=== PATIENT | male | born 1945 | race Caucasian/White ===

== ENCOUNTER 2018-02-11 08:32 | Outpatient (CLI) | payer MEDICARE, BC ==
[~2018-02-11] VITALS: Ht 177.8 cm; Wt 111.6 kg
[2018-02-11] VITALS (8 sets, daily range): BP systolic 112–148; BP diastolic 64–101; PULSE 68–101; TEMP 97.2–98.2
[~2018-02-11 08:32] MED LIST: BENADRYL25 M2 PO; BENADRYL50 MG PO; CYCLOBENZAPRINE10 MG PO; DAZIDOX10 MG PO; FLEXERIL 1010 MG/TAB PO; FOLIC ACID0.8 MG PO; HCTZ 25MG TAB25 MG PO; HCTZ12.5TAB PO; LIPITOR 40MG TA40 MG PO; LIPITOR40 MG PO; LISINOPRIL/HCTZ1 TA1 PO; METHOTREXA2.5 MG/TAB PO; METHOTREXATE S2.5 M1 PO; MILLIPRED5 MG PO; PERCOCET 325 MG1 TA5 PO; PREDNISONE 5MG5 MG PO; PREDNISONE10 M1 PO; PRINIVIL40 MG PO; TREXALL10 MG PO; ZANAFLEX 4MG TAB4 MG PO; ZANAFLEX CAPSULE4 MG PO; ZESTORETIC 12.51 TA1 PO
[2018-02-11 09:17] LABS: HEMATOCRIT 46.8 % (42.0-52.0); HEMOGLOBIN 15.6 g/dl (13.5-18.0); MEAN CELL VOLUME 87 fl (80.0-100.0); MEAN CORPUSCULAR HEMOGLOBIN 29 pg (27.0-31.0); MEAN CORPUSCULAR HGB CONC 33 g/dl (33.0-37.0); MEAN PLATELET VOLUME 9.7 fl (7.4-10.4); PLATELET COUNT 260 K/mm3 (130-400); RED BLOOD COUNT 5.38 M/mm3 (4.20-5.60); REDCELL DISTRIBUTION WIDTH-CV 13.2 % (11.5-14.5)
[2018-02-11 09:31] LABS: ALBUMIN 4.3 gm/dL (3.5-5.0); BAND 4 % (0-10); BILIRUBIN,TOTAL 0.6 mg/dL (0.0-1.0); C-REACTIVE PROTEIN 1.8 mg/dL (0.0-0.9); CALCIUM 9.5 mg/dL (8.4-10.2); CREATININE, serum 0.72 mg/dL (0.66-1.25); LYMPHOCYTE 54 % (20.0-51.0); NEUTROPHILS 37 % (42.0-75.2); PLATELET ESTIMATE NORMAL (NORMAL); POTASSIUM 3.6 mmol/L (3.4-5.0); TOTAL PROTEIN 7.4 gm/dL (6.4-8.2)
[2018-02-11 09:38] LABS: ERYTHROCYTE SEDIMENTATION RATE 6 mm/hr (0-30)
== END 2018-02-11 13:40 | disposition home or self-care (01) ==
LOC: EUO 08:32 → MEDICAL 08:33 → EUO 13:40
PROVIDERS: Family Medicine
DX: M05.79 Rheumatoid arthritis with rheumatoid factor of multiple sites without organ or systems involvement (principal); Z79.899 Other long term (current) drug therapy
CPT/HCPCS: OP; J2930; J7050; J9310

== ENCOUNTER 2018-02-25 08:25 | Outpatient (CLI) | payer MEDICARE, BC ==
[2018-02-25] VITALS (8 sets, daily range): BP systolic 110–135; BP diastolic 65–84; PULSE 67–84; TEMP 97.5–98.2
[~2018-02-25] VITALS: Ht 177.8 cm; Wt 111.3 kg
[2018-02-25 08:56] LABS: HEMOGLOBIN 15.6 g/dl (13.5-18.0); MEAN CELL VOLUME 89 fl (80.0-100.0); MEAN CORPUSCULAR HEMOGLOBIN 29 pg (27.0-31.0); MEAN CORPUSCULAR HGB CONC 33 g/dl (33.0-37.0); MEAN PLATELET VOLUME 9.7 fl (7.4-10.4); PLATELET COUNT 234 K/mm3 (130-400); RED BLOOD COUNT 5.39 M/mm3 (4.20-5.60); REDCELL DISTRIBUTION WIDTH-CV 13.1 % (11.5-14.5)
[2018-02-25 09:12] LABS: ALBUMIN 4.3 gm/dL (3.5-5.0); BILIRUBIN,TOTAL 0.5 mg/dL (0.0-1.0); CALCIUM 9.2 mg/dL (8.4-10.2); CREATININE, serum 0.71 mg/dL (0.66-1.25); TOTAL PROTEIN 7.5 gm/dL (6.4-8.2)
[2018-02-25 09:47] LABS: ERYTHROCYTE SEDIMENTATION RATE 1 mm/hr (0-30)
== END 2018-02-25 13:24 | disposition home or self-care (01) ==
LOC: MEDICAL 08:25 → COL.AMSURD 08:25
PROVIDERS: Family Medicine
DX: M05.79 Rheumatoid arthritis with rheumatoid factor of multiple sites without organ or systems involvement (principal); Z79.899 Other long term (current) drug therapy
CPT/HCPCS: OP; J2930; J7050; J9310

== ENCOUNTER 2019-09-18 10:00 | Outpatient (RCR) | payer MEDICARE, BC ==
--- NOTE | 2019-09-03 15:42 | NUR ---
LEFT A VOICEMAIL FOR PATIENT ASKING HIM TO CALL US IF HE IS SICK, OR HAS DEVELOPED ANY VIRAL SYMPTOMS INCLUDING COUGH, FEVER, SOB...INFORMED HIM HE IS WELCOME TO COME TO APPT IF HE HAS BEEN WELL WITH NO VIRAL SX AND KNOWN EXPOSURE TO ALONSO VIRUS.
[2019-09-04] VITALS (11 sets, daily range): BP systolic 122–160; BP diastolic 70–91; PULSE 62–82; TEMP 97.6–98.2
[2019-09-04 10:39] LABS: HEMATOCRIT 46.6 % (42.0-52.0); HEMOGLOBIN 15.3 g/dl (13.5-18.0); MEAN CELL VOLUME 90 fl (80.0-100.0); MEAN CORPUSCULAR HEMOGLOBIN 30 pg (27.0-31.0); MEAN CORPUSCULAR HGB CONC 33 g/dl (33.0-37.0); MEAN PLATELET VOLUME 9.7 fl (7.4-10.4); PLATELET COUNT 189 K/mm3 (130-400); RED BLOOD COUNT 5.17 M/mm3 (4.20-5.60); REDCELL DISTRIBUTION WIDTH-CV 13.2 % (11.5-14.5)
[2019-09-04 10:57] LABS: ALANINE AMINOTRANSFERASE 26 U/L (4-49); ALBUMIN 4.3 gm/dL (3.5-5.0); ALKALINE PHOSPHATASE 79 U/L (50-136); ANION GAP 7 mmol/L (7-16); AST,SGOT 26 U/L (15-37); BILIRUBIN,TOTAL 0.4 mg/dL (0.0-1.0); BLOOD UREA NITROGEN 16 mg/dL (9-20); CALCIUM 9.2 mg/dL (8.4-10.2); CARBON DIOXIDE 26 mmol/L (22-30); CHLORIDE 103 mmol/L (98-107); CREATININE, serum 0.67 (0.66-1.25); GLUCOSE 131 mg/dL (74-106); POTASSIUM 4.1 mmol/L (3.4-5.0); SODIUM 136 mmol/L (137-145); TOTAL PROTEIN 7.2 gm/dL (6.4-8.2)
[2019-09-04 10:59] LABS: ERYTHROCYTE SEDIMENTATION RATE 1 mm/hr (0-30)
[2019-09-04 11:00] LABS: C-REACTIVE PROTEIN < 0.5 mg/dL (0.0-0.9)
--- NOTE | 2019-09-17 19:53 | NUR ---
CALLED PT TO REVIEW INFECTIOUS DISEASE SCREENING. NO ANSWER.
[~2019-09-18] VITALS: Ht 177.8 cm; Wt 113.5 kg
[2019-09-18] VITALS (9 sets, daily range): BP systolic 101–163; BP diastolic 50–96; PULSE 54–73; TEMP 98–98.1
[~2019-09-18 10:00] MED LIST changes: +CELEBREX 200MG200 MG PO
[2019-09-18 10:10] LABS: HEMATOCRIT 46.3 % (42.0-52.0); HEMOGLOBIN 15.1 g/dl (13.5-18.0); MEAN CELL VOLUME 89 fl (80.0-100.0); MEAN CORPUSCULAR HEMOGLOBIN 29 pg (27.0-31.0); MEAN CORPUSCULAR HGB CONC 33 g/dl (33.0-37.0); MEAN PLATELET VOLUME 9.7 fl (7.4-10.4); PLATELET COUNT 230 K/mm3 (130-400); REDCELL DISTRIBUTION WIDTH-CV 13.2 % (11.5-14.5)
[2019-09-18 10:22] LABS: ALBUMIN 4.2 gm/dL (3.5-5.0); BILIRUBIN,TOTAL 0.6 mg/dL (0.0-1.0); CALCIUM 9.3 mg/dL (8.4-10.2); CREATININE, serum 0.73 (0.66-1.25); POTASSIUM 4.2 mmol/L (3.4-5.0); TOTAL PROTEIN 6.8 gm/dL (6.4-8.2)
[2019-09-18 10:24] LABS: C-REACTIVE PROTEIN 0.5 mg/dL (0.0-0.9)
[2019-09-18 10:42] LABS: ERYTHROCYTE SEDIMENTATION RATE 1 mm/hr (0-30)
== END 2019-09-18 16:00 | disposition home or self-care (01) ==
LOC: EUO 10:00
PROVIDERS: Family Medicine
DX: Z79.899 Other long term (current) drug therapy (principal)
CPT/HCPCS: J7040; J9312

== ENCOUNTER 2019-10-01 16:25 | Inpatient (IN) | payer MEDICARE, BC ==
[~2019-10-01] VITALS: Ht 177.8 cm; Wt 111.2 kg
[2019-10-07] VITALS (11 sets, daily range): BP systolic 115–166; BP diastolic 61–94; PULSE 68–90; TEMP 97.3–98.8
[2019-10-07] MEDS ORDERED: RITUXAN 50500 MG/50 IV (11:49)
--- NOTE | 2019-10-07 19:46 | NUR ---
Patient revieved post op. Report from Suki in PACU. Patient alert & oriented. Having significant back pain. Patient assist up to the chair. Patient medicated with Oxycodone, patient take this regularly for back pain at home for "bone spurs" Kpad provided for his pain. Abdomen dressing CDI. Hyde to DD. IVF per orders. Scds ble.
--- NOTE | 2019-10-07 21:15 | NUR ---
PT UP IN CHAIR AT BEDSIDE, USING KPAD FOR ABDOMEN AND BACK PAIN. MEDICATED WITH HS MEDS INCLUDING TRAMADOL FOR PAIN. IVF INFUSING TO LEFT HAND WITHOUT REDNESS OR SWELLING. CHERRY TO BSD WITH YELLOW URINE. ABD DISTENDED, BURPING BUT NOT PASSING FLATUS.
--- NOTE | 2019-10-07 21:30 | NUR ---
AMBULATES IN HALLWAY WITH PCT WITHOUT PROBLEM.
--- NOTE | 2019-10-08 00:16 | NUR ---
MEDICATED WITH OXYCODONE 10MG PO AT THIS TIME.
--- NOTE | 2019-10-08 00:33 | NUR ---
IVF CAPPED, TAKING ORAL FLUIDS WELL. OXYCODONE 10MG PO GIVEN FOR ABD AND BACK PAIN 11/26.
[2019-10-08 03:57] VITALS: BP 94/41; PULSE 73; TEMP 98.2
[2019-10-08 05:26] VITALS: BP 119/70
--- NOTE | 2019-10-08 06:03 | NUR ---
MEDICATED WITH OXYCODONE 10MG PO FOR ABD/BACK PAIN 11/26. DC'D CHERRY CATHETER AFTER DEFLATING BALLOON, EMPTIED 900CC OF URINE AT THIS TIME.
--- NOTE | 2019-10-08 06:53 | NUR ---
Up ambulating in [place].
[2019-10-08 06:55] LABS: BASO % 0.2 % (0.0-2.0); GRAN # 5.9 (1.4-6.5); GRAN % 54.1 % (42.2-75.2); HEMATOCRIT 44.8 % (42.0-52.0); HEMOGLOBIN 14.8 g/dl (13.5-18.0); LYMPH # 4.4 (1.2-3.4); LYMPH % 40.5 % (20.0-51.0); MEAN CELL VOLUME 88 fl (80.0-100.0); MEAN CORPUSCULAR HEMOGLOBIN 29 pg (27.0-31.0); MEAN CORPUSCULAR HGB CONC 33 g/dl (33.0-37.0); MEAN PLATELET VOLUME 9.8 fl (7.4-10.4); MONO # 0.5 (0.1-0.6); MONO % 4.9 % (1.7-9.3); PLATELET COUNT 240 K/mm3 (130-400); RED BLOOD COUNT 5.08 M/mm3 (4.20-5.60); REDCELL DISTRIBUTION WIDTH-CV 12.8 % (11.5-14.5)
[2019-10-08 07:07] LABS: CALCIUM 9.1 mg/dL (8.4-10.2); CREATININE, serum 0.75 (0.66-1.25)
--- NOTE | 2019-10-08 08:00 | NUR ---
Patient resting in bedside recliner at this time. Patient has been ambulating in the halls independently this morning. Patient denies pain or nausea, states no further needs at this time, call light within reach.
[2019-10-08 08:43] VITALS: BP 105/63; PULSE 79; TEMP 97.7
--- NOTE | 2019-10-08 09:56 | NUR ---
DONN met with the patient to complete initial intake. The patient lives in [place] with his Maria Del Rosario. The patient denies DME use and is independent with ADLs. The patient's PCP is Dr. Overton and patient receives medications from [facility]. The patient does not have advanced directives in the EMR but states they are completed. They designate his Maria Del Rosario and alternates are his daughter, Patsy and son, Cristofer. The patient is ambulating well in the halls and plans to return home at discharge with Maria Del Rosario providing transportation. There are no additional needs at this time.
[2019-10-08 11:42] VITALS: BP 115/63; PULSE 63; TEMP 98.1
[2019-10-08 17:01] VITALS: BP 138/69; PULSE 78; TEMP 98.8
--- NOTE | 2019-10-08 17:38 | NUR ---
Patient eating dinner at this time. Patient states that advanced diet has not caused abdominal pain or nausea. Patient continues to deny pain or needs, call light within reach.
[2019-10-08 20:12] VITALS: BP 132/69; PULSE 81; TEMP 98
--- NOTE | 2019-10-08 20:24 | NUR ---
MEDICATED WITH HS MEDS INCLUDING TRAMADOL AND BENDADRYL. PASSING FLATUS AND VOIDING WITHOUT PROBLEM. SL TO LEFT HAND WITHOUT REDNESS OR SWELLING.
[2019-10-09 00:12] VITALS: BP 122/58; PULSE 71; TEMP 98.2
--- NOTE | 2019-10-09 00:30 | NUR ---
Pt reports pain 7/10 to back and abdomen. Medicated with scheduled ES Tylenol and Oxycodone 10mg po.
[2019-10-09 04:23] VITALS: BP 107/60; PULSE 74; TEMP 97.4
--- NOTE | 2019-10-09 04:33 | NUR ---
Pt awake, denies needs at this time.
[2019-10-09 08:01] VITALS: BP 116/68; PULSE 92; TEMP 98.2
--- NOTE | 2019-10-09 10:36 | NUR ---
First visit from the hand i thermal cutter. No needs right now.
--- NOTE | 2019-10-09 11:56 | NUR ---
Dr Mehta here to see patient.
[2019-10-09 12:30] VITALS: BP 147/81; PULSE 74; TEMP 97.9
--- NOTE | 2019-10-09 13:30 | NUR ---
Discharge instructions reviewed with patient. Discharged ambulatory to auto/home with spouse at 1310.
== END 2019-10-09 13:10 | disposition home or self-care (01) | DRG 331 ==
LOC: SURG 10-07 11:05 → INPTSU 10-07 11:05 → SURG 10-07 14:45
PROVIDERS: ADMIT Surgery
PROC: 8E0W4CZ Robotic Assisted Procedure of Trunk Region, Percutaneous Endoscopic Approach (ICD-10-PCS; 2019-10-07)
PROC: 0DTF4ZZ Resection of Right Large Intestine, Percutaneous Endoscopic Approach (ICD-10-PCS; principal; 2019-10-07 14:45)
DX: D12.0 Benign neoplasm of cecum (principal); M06.9 Rheumatoid arthritis, unspecified; M19.90 Unspecified osteoarthritis, unspecified site; I10 Essential (primary) hypertension; E78.00 Pure hypercholesterolemia, unspecified; G89.29 Other chronic pain; E66.9 Obesity, unspecified; Z68.35 Body mass index [BMI] 35.0-35.9, adult
CPT/HCPCS: A4314; A9284; J0690; J1100; J1170; J1650; J1885; J2250; J2405; J2704; J2795; J3010; J7120

== ENCOUNTER 2020-10-12 10:30 | Outpatient (RCR) | payer MEDICARE, BC ==
[2020-09-28 12:05] VITALS: BP 134/85; PULSE 78; TEMP 98.5
[2020-09-28 12:30] VITALS: BP 129/80; PULSE 77
[2020-09-28 13:00] VITALS: BP 130/78; PULSE 75
[2020-09-28 13:30] VITALS: BP 126/80; PULSE 78; TEMP 97.8
[2020-09-28 14:30] VITALS: BP 129/80; PULSE 79
[2020-09-28 15:30] VITALS: BP 132/70; PULSE 86
[~2020-10-12] VITALS: Ht 177.8 cm; Wt 113.7 kg
[~2020-10-12 10:30] MED LIST changes: +RITUXAN 50500 MG/50 IV
[2020-10-12 11:30] VITALS: BP 131/82; PULSE 92; TEMP 98.7
[2020-10-12 12:00] VITALS: BP 103/71; PULSE 77
[2020-10-12 12:55] VITALS: BP 110/75; PULSE 72
[2020-10-12 14:00] VITALS: BP 110/75; PULSE 72; TEMP 98.2
--- NOTE | 2020-10-12 15:02 | NUR ---
INFUSION COMPLETE, PT HAS NO C/O, IV D'CD INTACT
== END 2020-10-12 17:18 | disposition still patient (30) ==
LOC: EUO 10:30
DX: M06.9 Rheumatoid arthritis, unspecified (principal); Z79.899 Other long term (current) drug therapy
CPT/HCPCS: J7040; Q5115